=== PATIENT | female | born 1960 | race African-American/Black ===

== ENCOUNTER 2017-05-13 09:47 | Emergency (ER) | payer OTHER ==
[~2017-05-13] VITALS: Ht 170.2 cm; Wt 75.0 kg
[~2017-05-13 09:47] MED LIST: DIAZ10 PO; HYDR-309 PO
[2017-05-13] MEDS ORDERED: MORP15 PO (10:13)
[2017-05-13] MEDS ORDERED: OXYC10 PO (10:13)
[2017-05-13] MEDS ORDERED: OXYC15TA2 PO (10:56)
[2017-05-13] MEDS ORDERED: KETOROLAC TROMETHAMINE 30 MG/ML VIAL IM ONE (11:00)
[2017-05-13 12:00] VITALS: BP 156/85
== END 2017-05-13 12:43 | disposition home or self-care (01) ==
LOC: EMS 09:48
DX: M71.21 Synovial cyst of popliteal space [Baker], right knee (principal); Z88.8 Allergy status to other drugs, medicaments and biological substances; Z88.1 Allergy status to other antibiotic agents; Z96.653 Presence of artificial knee joint, bilateral; Z98.890 Other specified postprocedural states
CPT/HCPCS: 93971; 96372; 99284; J1885

== ENCOUNTER 2017-09-18 13:09 | Emergency (ER) | payer OTHER ==
[~2017-09-18] VITALS: Ht 170.2 cm; Wt 70.5 kg
[~2017-09-18 13:09] MED LIST changes: -DIAZ10 PO; -HYDR-309 PO; +MORP15 PO; +OXYC15TA2 PO
[2017-09-18] MEDS ORDERED: CYCLOBENZAPRINE HCL 10 MG TABLET PO ONE (17:00)
[2017-09-18] MEDS ORDERED: LIDOCAINE HCL 5% TRANSDERMAL PATCH TD ONE (17:00)
[2017-09-18] MEDS ORDERED: KETOROLAC TROMETHAMINE 30 MG/ML VIAL IM ONE (17:00)
[2017-09-18 17:24] VITALS: BP 146/82
[2017-09-18] MEDS: HYDROCODONE/ACETAMINOPHEN 5-325 MG TABLET PO ONE ×2 (18:19→18:21)
== END 2017-09-18 18:41 | disposition home or self-care (01) ==
LOC: EMS 13:10
DX: M54.5 Low back pain (principal); G89.29 Other chronic pain; Z88.0 Allergy status to penicillin; Z88.1 Allergy status to other antibiotic agents; Z88.8 Allergy status to other drugs, medicaments and biological substances
CPT/HCPCS: 96372; 99283; J1885